=== PATIENT | male | born 1990 | race American Indian/Alaskan Native ===

== ENCOUNTER 2016-10-29 21:39 | Emergency (ER) | payer OTHER ==
[2016-10-30] MEDS ORDERED: TORADOL IM ONE (02:25)
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
[2016-10-30] MEDS ORDERED: TENIVAC IM ONE (03:59)
[2016-10-30 05:08] VITALS: BP 108/55
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
== END 2016-10-30 04:40 | disposition home or self-care (01) ==
LOC: ED 21:39
DX: S09.90XA Unspecified injury of head, initial encounter (principal); S39.012A Strain of muscle, fascia and tendon of lower back, initial encounter; S16.1XXA Strain of muscle, fascia and tendon at neck level, initial encounter; V49.9XXA Car occupant (driver) (passenger) injured in unspecified traffic accident, initial encounter; W22.10XA Striking against or struck by unspecified automobile airbag, initial encounter; Y93.89 Activity, other specified; Y99.8 Other external cause status; Y92.89 Other specified places as the place of occurrence of the external cause
CPT/HCPCS: 70450; 70486; 71020; 72100; 72125; 90471; 90714; 96372; 99284; J1885